=== PATIENT | female | born 1965 | race Caucasian/White ===

== ENCOUNTER 2023-12-14 06:28 | Day surgery (SDC) | payer OTHER, SELFPAY ==
[2023-12-14] VITALS (13 sets, daily range): BP systolic 88–116; BP diastolic 56–79; PULSE 60–73; RESP 16–18; TEMP 36.5; O2SAT 95–100; BMI 27.0
--- NOTE | 2023-12-14 07:13 | PCM.HP.BLA ---
History and Physical Date of Admission: 12/14/23 The patient is examined and there are no changes to the H&P dated 11/20/23. Pt for excision cyst of mid chest. Informed consent was obtained including the risk of scarring. Assessment & Plan Assessment/Plan (1) Sebaceous cyst: PLAN: Plan For excision cyst of chest.
--- NOTE | 2023-12-14 07:30 | LES_PTH ---
PATIENT: MIRZA RIVERO LOC: [facility] [place] U#:[id number] AGE/SX: 58/F ROOM: RE12/14/[address]: Dr. Iram Zavala MD : 1965 BED: DIS: 12/14/2023 SPEC #: [id number] RECD: 12/14/23 08:47 STATUS: AMARA REDahlia #: [id number] HELDER: 12/14/23 07:[address]: Iram Zavala DEPT: SURGICAL PATHOLOGY RECD BY: Moror Gordon ENTERED: 12/14/23 09:30 SP TYPE: Lesion OTHR DR: Cami Fonseca, SRIRAM-Hali Tissues: A - CYST B - Skin of chest Procedures: Surgery Specimen Level III Surgery Specimen Level IV HEADER OPERATION: Excision lesion cyst chest (2.5cm) with intermediate closure PRE-OP DIAGNOSIS: Sebaceous cyst- chest TISSUE SUBMITTED: A- Sebaceous cyst chest and skin tag, B- Skin lesion chest MICROSCOPIC DIAGNOSIS A. Skin tag, biopsy: Benign polypoid seborrheic keratosis. Skin lesion of chest, excision: Epidermal inclusion cyst with rupture and associated reactive and reparative change. B. Skin lesion of chest, biopsy: Suggestive of capillary hemangioma. AM/mr 12/17/2023 COMMENT Case has been reviewed in consultation with Dr. Garzon who concurs with the above diagnosis. IDC:SJ MICROSCOPIC DESCRIPTION Slides are reviewed. GROSS DESCRIPTION A. Received in fixative is one container labeled with the patient's name and designated Sebaceous cyst of chest and skin tag. The specimen consists of a piece of espinal-white skin with underlying tissue measuring 1.8 x 0.6cm and up to 1.0cm in thickness. The skin piece is inked and serially sectioned. Also present in the container is a detached piece of espinal-white skin measuring 0.2 x 0.2 x 0.1cm. The entire specimen is submitted in two cassettes as follows: 1- larger piece of skin piece, 2- smaller piece of skin. B. Received in fixative is one container labeled with the patient's name and designated Skin lesion chest. The specimen consists of a piece of espinal-white skin measuring 0.1 x 0.1 x 0.1cm. The entire specimen is submitted in one cassette. DARRYL/ 12/14/2023 TC:5 CPT:64908,73168c5
[2023-12-14] MEDS: Lidocaine 1% /Epi 1:100 9 ML, Sodium Bicarbonate 1 MEQ OPERA.SITE (07:39)
--- NOTE | 2023-12-14 08:15 | EX.PCM.DISCH ---
Discharge Instructions Dressing / Incision Additional Dressing/Incision Instructions:: Leave the dressing in place. May shower over the site--but do not scrub. Take the oral antibiotic (Keflex) 2 x a day until finished. Follow Up Care Please Follow Up With: Iram Zavala MD When: in 1-2 weeks Test Results: Test results from this visit will be discussed in further detail at your follow-up appointment, if applicable. Discharge Plan Admission Attending Provider: Iram Zavala Primary Care Provider: Cami Fonseca Instructions Print Language: Korean Discharge Orders/Prescriptions Prescriptions: New cephalexin 500 mg capsule 500 mg PO BID 5 Days Qty: 10 0RF No Action meloxicam 15 mg tablet 15 mg PO DAILY Referrals / Follow Up: Cami Fonseca [facility] [Primary Care Provider] - Disposition Disposition (needs filled in before D/C Order can be placed): Home, Self Care
--- NOTE | 2023-12-14 08:20 | OP.PCM_ITS ---
Problems Associated Problem List Diagnoses (1) Sebaceous cyst: (2) Neoplasm of uncertain behavior of skin of chest: Report of Operation Date of Procedure: 12/14/23 Pre-Operative Diagnosis: sebaceous cyst chest Post-Operative Diagnosis: sebaceous cyst chest neoplasm uncertain behavior skin of chest Surgery/Procedure Performed:: Excision cyst of anterior midline chest skin (2.5 cm) with intermediate closure Shave pigmented lesion anterior chest (0.2 cm) Surgeon: Iram Zavala rectifier operator: JESS YARBROUGHinformation systems security manager Type of Anesthesia: Local Specimen's removed: Cyst, neoplasm uncertain behavior Estimated Blood Loss (mL): Minimal Description of Procedure: The patient presents with a resolving infection of a cyst of her anterior chest. She presents for excision of the chest with intermediate closure. The patient was incidentally also noted to have a suspicious pigmented lesion just superior to this during the procedure. She consents to having this shaved off as she was awake and had received no medications. The patient was brought to the operating room and placed on the operating room table in the supine position. The chest is prepped and draped in the usual sterile fashion. 1% Xylocaine with epinephrine buffered with sodium bicarb is used for local anesthetic. Following this, an elliptical incision is made around the cyst. Dissection carried down through the subcutaneous tissue. The cyst and surrounding scar tissue was removed and passed off the operative field to be sent to pathology. Hemostasis is controlled with cautery. The site is then closed in layers using a Monocryl suture in the subcutaneous tissue and dermis. Skin edges are approximated with a running subcuticular Monocryl suture. Further reinforcement the closure is performed with 2 interrupted Prolene sutures. The site is dressed with Dermabond and Steri-Strips as well as a Tegaderm. An incidental note is made of a darkly pigmented lesion just superior to this within our field. I discussed this with the patient in addition to its appearance in conjunction with her history of solar damage. She consents to shaving of the lesion with submission for pathologic evaluation. It is anesthetized with 1% Xylocaine with epinephrine. It is scraped at the base. Is passed off the operative field to be sent to pathology. Hemostasis is controlled with cautery. A small amount of Dermabond was placed over top of the site to seal it. She tolerated the procedure well was taken to the recovery area in an awake and stable condition. Needle and sponge counts are correct. Complications None Admit VTE Documentation VTE Mechan Device Prophylaxis: None Reason prophylaxis not ordered:: Treatment Not Indicated
== END 2023-12-14 08:33 | disposition home or self-care (01) ==
LOC: SDC 06:28 → AC 06:32
PROVIDERS: PCP Nurse Practitioner Family; Referring Provider Plastic Surgery; Visit Provider Plastic Surgery
PROC: (CPT 11403; principal; 2023-12-14 07:20)
DX: L72.3 Sebaceous cyst (principal); L82.1 Other seborrheic keratosis; L72.0 Epidermal cyst; D48.5 Neoplasm of uncertain behavior of skin
CPT/HCPCS: 11403; 12031; 11300; 88304; 88305